=== PATIENT | female | born 1960 | race American Indian/Alaskan Native ===

== ENCOUNTER 2017-06-21 17:03 | Emergency (ER) | payer OTHER ==
[2017-06-21 17:25] VITALS: BP 154/84
[2017-06-21] MEDS ORDERED: ASPIRIN PO ONE (17:25)
[2017-06-21 18:44] LABS: Basophils % (Auto) 0.8 % (0.0-1.8); Eosinophils % (Auto) 1.3 % (0.0-4.3); Hematocrit 32.5 % (30.3-42.9); Hemoglobin 10.7 gm/dl (10.1-14.3); Lymphocytes # (Auto) 0.8 K/mm3 (1.2-5.4); Lymphocytes % (Auto) 24.9 % (13.4-35.0); Mean Corpuscular HGB Conc 33 % (30-34); Mean Corpuscular Hemoglobin 29 pg (28-32); Mean Corpuscular Volume 89 fl (79-97); Monocytes # (Auto) 0.3 K/mm3 (0.0-0.8); Monocytes % (Auto) 8.9 % (0.0-7.3); Platelet Count 233 K/mm3 (140-440); Red Blood Count 3.65 M/mm3 (3.65-5.03); Red Cell Distribution Width 14.2 % (13.2-15.2)
[2017-06-21 18:54] LABS: BUN/Creatinine Ratio 16; Blood Urea Nitrogen 14 mg/dL (7-17); Calcium 8.9 mg/dL (8.4-10.2); Hemolysis Index 10
--- NOTE | 2017-06-21 20:30 | XRay Report ---
FINAL REPORT EXAM: XR CHEST ROUTINE 2V HISTORY: chest pain, recent pneumonia TECHNIQUE: Two views of the chest Comparison: None FINDINGS: There is cardiomegaly. There are no layering pleural effusions. There are no discrete focal infiltrates. Exam is hypoventilated. There is no significant degenerative change of the thoracic vertebral bodies. IMPRESSION: Hypoventilated exam. Cardiomegaly without focal infiltrate.
== END 2017-06-21 19:50 | disposition left against medical advice (07) ==
LOC: ED 17:03
DX: R07.9 Chest pain, unspecified (principal); Z53.21 Procedure and treatment not carried out due to patient leaving prior to being seen by health care provider
CPT/HCPCS: 36415; 71046; 80048; 84484; 85025; 93005; 93010

== ENCOUNTER 2018-08-22 08:35 | Outpatient (CLI) | payer OTHER ==
--- NOTE | 2018-08-22 11:02 | Mammography Report ---
BILATERAL DIGITAL SCREENING MAMMOGRAM with CAD: 08/22/18 08:35:00 CLINICAL: Routine screening.History of bilateral breast reduction. COMPARISON:10/05/13 FINDINGS: The breasts are heterogeneously dense, which may obscure small masses. The breasts are smaller and have become more fatty since the last exam.A heavily calcified benign 2 cm right inner mass and a partially calcified left upper benign oil cyst. No other mass, architectural distortion or suspicious calcifications. IMPRESSION: No mammographic evidence of malignancy. BI-RADS CATEGORY: 2 -- Benign RECOMMENDATION: Routine mammographic screening in one year. COMMENT: Patient follow-up letters are generated by our [employer] application.
== END 2018-08-22 08:36 | disposition home or self-care (01) ==
LOC: SPVWC 08:35
PROVIDERS: ATTEND Family Medicine
DX: Z12.31 Encounter for screening mammogram for malignant neoplasm of breast (principal); I10 Essential (primary) hypertension; E78.5 Hyperlipidemia, unspecified; Z90.710 Acquired absence of both cervix and uterus
CPT/HCPCS: 77067

== ENCOUNTER 2020-11-14 11:20 | Outpatient (CLI) | payer OTHER ==
--- NOTE | 2020-11-18 14:14 | Mammography Report ---
DIGITAL SCREENING MAMMOGRAM WITH CAD, 11/14/2020 CLINICAL INFORMATION / INDICATION: Routine screening mammography. TECHNIQUE: Digital bilateral 2D mammography was obtained in the craniocaudal and mediolateral obliqu e projections. This examination was interpreted with the benefit of Computer-Aided Detection analysis . COMPARISON: 08/22/2018 FINDINGS: Breast Density: There are scattered areas of fibroglandular density. No dominant mass, suspicious calcifications, or architectural distortion in either breast. Postsurgical changes from bilateral breast reduction are again noted. IMPRESSION: No mammographic evidence of malignancy. Follow up recommendation: Routine yearly BI-RADS Category 2: Benign. A "normal" or negative report should not discourage follow up or biopsy of a clinically significant f inding. A written summary of these findings will be mailed to the patient. The patient will be entered into a mammography reporting system which will generate a reminder letter for the patient's next appointmen t at the appropriate interval. The [employer] recommends yearly mammograms starting at age 40 and continuing as l [place] as a woman is in good health. Breast MRI is recommended for women with an approximate 20-25% or greater lifetime risk of breast cancer, including women with a strong family history of breast or ova kimberly cancer or who have been treated for Hodgkin's disease. Signer Name: Saundra Argueta MD Signed: 11/18/2020 2:10 PM Workstation Name: [id number]
== END 2020-11-14 11:21 | disposition home or self-care (01) ==
LOC: SPVWC 11:20
PROVIDERS: ATTEND Student in an Organized Health Care Education/Training Program
DX: Z12.31 Encounter for screening mammogram for malignant neoplasm of breast (principal)
CPT/HCPCS: 77067

== ENCOUNTER 2021-10-01 20:19 | Emergency (ER) | payer OTHER ==
[2021-10-01 20:41] VITALS: BP 133/80
== END 2021-10-02 01:50 | disposition left against medical advice (07) ==
LOC: ED 20:19
DX: M79.605 Pain in left leg (principal); Z53.21 Procedure and treatment not carried out due to patient leaving prior to being seen by health care provider